=== PATIENT | female | born 2000 | race Caucasian/White ===

== ENCOUNTER 2022-10-25 18:09 | Emergency (ER) | payer BC, OTHER ==
[~2022-10-25] VITALS: Ht 157.5 cm; Wt 59.2 kg
[~2022-10-25 18:09] MED LIST: ATIV1TAB10 PO
[2022-10-25] MEDS ORDERED: MED REC IN PROGRESS XX SCH (19:35)
[2022-10-25 19:52] LABS: HEMATOCRIT 42.9 % (36.0-47.0); HEMOGLOBIN 13.8 g/dl (12.0-15.5); MEAN CORPUSCULAR HEMOGLOBIN 26.5 pg (27.0-33.0); MEAN CORPUSCULAR HGB CONC 32.2 g/dl (32.0-36.5); MEAN CORPUSCULAR VOLUME 82.3 fl (80.0-96.0); PLATELET COUNT, AUTOMATED 249 10^3/uL (150-450); RED BLOOD COUNT 5.21 10^6/uL (4.00-5.40); WHITE BLOOD COUNT 9.6 10^3/uL (4.0-10.0)
[2022-10-25] MEDS ORDERED: MONT10TA97 PO (20:01)
[2022-10-25] MEDS ORDERED: HOME MED LIST COMPLETE! XX SCH (20:05)
[2022-10-25 20:08] LABS: AMPHETAMINES LEVEL URINE NEGATIVE (NEGATIVE); BARBITURATES URINE NEGATIVE (NEGATIVE); BENZODIAZEPINES URINE NEGATIVE (NEGATIVE); CANNABINOIDS URINE NEGATIVE (NEGATIVE); COCAINE METABOLITE URINE NEGATIVE (NEGATIVE); METHADONE URINE NEGATIVE (NEGATIVE); OPIATES URINE NEGATIVE (NEGATIVE); PHENCYCLIDINE URINE NEGATIVE (NEGATIVE)
[2022-10-25] MEDS ORDERED: SERT50TA29 PO (20:09)
[2022-10-25] MEDS ORDERED: HYDR50TA70 PO (20:09)
[2022-10-25 20:10] LABS: ETHYL ALCOHOL (ETHANOL) < 0.003 % (0.000-0.010)
[2022-10-25 20:12] LABS: ACETAMINOPHEN LEVEL < 2.0 UG/ML (10.0-20.0); ALBUMIN 4.2 G/DL (3.2-5.2); ALKALINE PHOSPHATASE 66 U/L (46-116); ALT/SGPT 12 U/L (7.0-40); AST/SGOT 14 U/L (<34); BILIRUBIN,DIRECT 0.1 MG/DL (<0.4); BILIRUBIN,TOTAL 0.4 MG/DL (0.3-1.2); BLOOD UREA NITROGEN 11 MG/DL (9-23); CALCIUM LEVEL 9.7 MG/DL (8.5-10.1); CARBON DIOXIDE LEVEL 25 MMOL/L (20-31); CHLORIDE LEVEL 104 MMOL/L (98-107); CREATININE FOR GFR 0.61 MG/DL (0.55-1.30); GLOMERULAR FILTRATION RATE > 60.0 (>60); GLUCOSE, FASTING 90 MG/DL (60-100); POTASSIUM SERUM 3.7 MMOL/L (3.5-5.1); SALICYLATE LEVEL < 3.0 MG/DL (<30); SODIUM LEVEL 139 MMOL/L (136-145); TOTAL PROTEIN 7.9 G/DL (5.7-8.2)
[2022-10-25 20:14] LABS: THYROID STIMULATING HORMONE 1.996 uIU/ML (0.55-4.78)
[2022-10-25 20:27] LABS: HCG, SERUM QUALITATIVE NEGATIVE (NEGATIVE)
[2022-10-25] MEDS ORDERED: MONTELUKAST 10 MG TAB PO ONE (23:05)
[2022-10-26] MEDS ORDERED: hydrOXYzine 50 MG TAB PO ONE
[2022-10-26 05:51] VITALS: BP 113/71; TEMP 97; O2SAT 99
[2022-10-26] MEDS ORDERED: hydrOXYzine 50 MG TAB PO PRN (07:25)
[2022-10-26] MEDS ORDERED: SERTRALINE HCL 50 MG TAB PO SCH (09:00)
[2022-10-26] MEDS ORDERED: MONTELUKAST 10 MG TAB PO SCH (21:00)
== END 2022-10-26 11:05 | disposition home or self-care (01) ==
LOC: M ED 18:09
DX: U07.1 COVID-19 (principal); F41.0 Panic disorder [episodic paroxysmal anxiety]; F32.A Depression, unspecified; F17.200 Nicotine dependence, unspecified, uncomplicated; Z79.899 Other long term (current) drug therapy

== ENCOUNTER → 2023-07-03 | Outpatient (CLI) | payer BC, OTHER ==
[~2023-07-03] MED LIST changes: +HYDR50TA70 PO; +MONT10TA97 PO; +SERT50TA29 PO
== END ==
LOC: M WHC 16:12
PROVIDERS: ATTEND Obstetrics & Gynecology
DX: O36.80X0 Pregnancy with inconclusive fetal viability, not applicable or unspecified (principal)